=== PATIENT | female | born 2000 | race Caucasian/White ===

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

== ENCOUNTER 2021-01-20 10:04 | Inpatient (IN) | payer OTHER ==
[2021-01-20] MEDS ORDERED: LACTATED RINGERS 1,000 ML IV ONE (10:09)
[2021-01-20] MEDS ORDERED: CITRIC ACID-SODIUM CITRATE 15 ML CUP PO ONE (10:09)
[2021-01-20] MEDS ORDERED: LACTATED RINGERS 1,000 ML IV SCH (10:15)
[2021-01-20 10:55] LABS: Anisocytosis Slight; Basophils % (A) 0 %; Eosinophils % (A) 1 %; HCT 35.6 % (34.0-46.0); HGB 11.8 gm/dL (11.4-16.0); Lymphocytes # (A) 1.1 k/uL (1.0-4.8); Lymphocytes % (A) 21 %; MCH 26.2 pg (25.0-35.0); MCHC 33.3 g/dL (31.0-37.0); MCV 78.6 fL (80.0-100.0); Mean Platelet Volume 9.2; Microcytosis Slight; Monocytes # (A) 0.2 k/uL (0-1.0); Monocytes % (A) 4 %; Neutrophils # (A) 3.9 k/uL (1.3-7.7); Neutrophils % (A) 73 %; Platelet Count 174 k/uL (150-450); Poikilocytosis Slight; RBC 4.52 m/uL (3.80-5.40); RDW 16.1 % (11.5-15.5); WBC 5.4 k/uL (3.8-10.6)
--- NOTE | 2021-01-20 10:55 | P.HPOB ---
History of Present Illness H&P Date: 01/20/21 Chief Complaint: 39-2/7 weeks, previous section, requesting repeat The patient is a 20-year-old 2 para 1001 who presents to the hospital at 39-2/7 weeks as established by last menstrual period and confirmed by 10 week ultrasound for repeat low transverse section having previously undergone section. Her has been otherwise entirely uncomplicated and group B strep status is negative. Obstetrical history: 2 para 1001 with 1 term section as noted above. Current statistics are listed in history of present illness. EDC of 01/24/2021 was established by last menstrual period and confirmed by 10 week ultrasound. Laboratory workup demonstrates a blood type of AB+ with a negative antibody screen. Rubella status is immune. The remainder of the laboratory workup was within normal limits aside from a positive urine culture which was treated and cured. Early Glucola as well as second trimester Glucola were within normal limits. Group B strep status is negative. Gynecologic history: Unremarkable with no history of any infections to include STDs. Review of Systems Review of systems is confined to history of present illness. Past Medical History Additional Past Medical History / Comment(s): c section 07/2019 History of Any Multi-Drug Resistant Organisms: None Reported Past Surgical History: Section Additional Past Surgical History / Comment(s): 07/2019 Past Anesthesia/Blood Transfusion Reactions: No Reported Reaction Past Psychological History: No Psychological Hx Reported Smoking Status: Never smoker Past Alcohol Use History: None Reported Past Drug Use History: None Reported Medications and Allergies Home Medications Medication Instructions Recorded Confirmed Type No Known Home Medications 01/20/21 01/20/21 History Allergies Allergy/AdvReac Type Severity Reaction Status Date / Time No Known Allergies Allergy Verified 01/20/21 10:08 Exam Vital Signs Temp Pulse Resp BP Pulse Ox 01/20/21 10:08 97.2 F L 89 16 126/82 99 Intake and Output 01/19/21 01/20/21 01/20/21 22:59 06:59 14:59 Other: Weight 99.337 kg In general, this is a well-developed, moderately obese white female in no acute distress. Her heart has a regular rhythm and rate without murmur. Her lungs are clear to auscultation in all ferrer. Her abdomen is gravid, nondistended, has normal active bowel sounds, is soft, nontender, and without any palpable masses aside from uterine fundus. Her extremities are without any cyanosis, clubbing, or edema and are nontender to palpation bilaterally. Digital cervical examination is deferred. Assessment and Plan (1) Term Current Visit: Yes Status: Acute Code(s): Z34.90 - ENCNTR FOR SUPRVSN OF NORMAL , UNSP, UNSP TRIMESTER SNOMED Code(s): 21612505 (2) Previous section Current Visit: Yes Status: Acute Code(s): Z98.891 - HISTORY OF UTERINE SCAR FROM PREVIOUS SURGERY SNOMED Code(s): 180712528 Plan: The patient is admitted for repeat low transverse section. The risks and complications of the procedure been thoroughly discussed and she has understood and agreed to proceed.
[2021-01-20] MEDS ORDERED: OXYTOCIN 30 UNITS/500 ML NS BAG IV ONE (11:25)
[2021-01-20] MEDS ORDERED: KETOROLAC 15 MG/ML 1 ML VIAL ONE (11:25)
[2021-01-20] MEDS ORDERED: DEXAMETHASONE SOD PHOSPHATE 10 MG/ML 1 ML VIAL ONE (11:25)
[2021-01-20] MEDS ORDERED: HYDROmorphone (PF) 1 MG/ML ONE (11:25)
[2021-01-20] MEDS ORDERED: ONDANSETRON 4 MG/2 ML VIAL ONE (11:25)
[2021-01-20] MEDS ORDERED: MORPHINE SULFATE (PF) 0.3 MG/0.3 ML SYR ONE (11:25)
[2021-01-20] MEDS ORDERED: SIMETHICONE 80 MG CHEWABLE PO PRN (12:23)
[2021-01-20] MEDS ORDERED: METOCLOPRAMIDE 5 MG/ML 2 ML VIAL IVP PRN (12:23)
[2021-01-20] MEDS ORDERED: ONDANSETRON 4 MG/2 ML VIAL IVP PRN (12:23)
[2021-01-20] MEDS ORDERED: ZOLPIDEM 5 MG TAB PO PRN (12:23)
[2021-01-20] MEDS ORDERED: diphenhydrAMINE 50 MG/ML 1 ML VIAL IVP PRN ×2 (12:23)
[2021-01-20] MEDS ORDERED: diphenhydrAMINE 50 MG CAP PO PRN (12:23)
[2021-01-20] MEDS ORDERED: NALOXONE 0.4 MG/ML 1 ML VIAL IV PRN (12:23)
[2021-01-20] MEDS ORDERED: diphenhydrAMINE 25 MG CAP PO PRN (12:23)
[2021-01-20] MEDS ORDERED: HYDROmorphone 2 MG TAB PO PRN ×2 (12:23)
[2021-01-20] MEDS ORDERED: OXYTOCIN 30 UNITS/500 ML NS 30 UNIT in SALINE 1 500ML.BAG IV SCH (12:30)
--- NOTE | 2021-01-20 12:31 | P.OP ---
Date of Procedure: 01/20/21 Preoperative Diagnosis: #1. 39-3/7 weeks, previous section, requesting repeat Postoperative Diagnosis: Same Procedure(s) Performed: #1. Repeat low transverse section Anesthesia: spinal Surgeon: Pito Schwab Prism Inspector #1: Gabi Metzger Estimated Blood Loss (ml): 650 IV fluids (ml): 700 Urine output (ml): 100 Pathology: none sent Condition: stable Disposition: floor Operative Findings: The patient was taken to the operating room where she was delivered of a viable 7 lbs. 10 oz. baby boy with Apgars of 9 at 1 minute and 9 at 5 minutes. There was a nuchal cord 3 noted and reduced prior to delivery of the infant's body. The placenta was delivered manually, intact, and grossly normal with a grossly normal three-vessel cord. The uterus, tubes, and ovaries were normal to ins pection. There was a moderate amount of scarring present at the level of the fascia and muscles. Description of Procedure: The patient was prepped and draped in usual fashion after spinal anesthesia was administered by the anesthesiologist. A Pfannenstiel incision was made through pre-existing scar and extended into the abdominal cavity without difficulty other was some scarring at the level of the fascia to the rectus muscles. There was additionally some omentum scarred at the superior portion of the separation of the rectus muscles. The bladder peritoneum was elevated, incised, and reflected distally. A 2 cm incision was made in the transverse plane of the lower uterine segment to enter the uterus at which time clear fluid was noted. The incision was extended in both directions using the bandage scissors. The head was delivered up and through the incision where the nose and mouth were thoroughly suctioned. There was then noted to be 3 nuchal cords which were reduced prior to delivery of the . The remainder of the was delivered onto the field where the cord was doubly clamped, cut, and the passed for resuscitative measures with weight and Apgars as noted above. A segment of cord was doubly clamped, cut, and set aside should cord gases become necessary. The placenta was delivered manually and intact as noted above. The uterus was exteriorized and the interior cavity of the uterus swept of any remaining placental or membranous fragments. The margins of the incision were grasped with Loredo clamps and the incision closed in 2 layers. The first layer was a running locking stitch of 0 chromic catgut followed by a running imbricating layer of 0 chromic catgut, each from margin to margin. Any small points of bleeding were made hemostatic with the Bovie. The posterior cul-de-sac was suctioned using a guard and the uterine and ovarian findings were normal as noted above. The uterus was replaced within the abdominal cavity and the gutters swept of any remaining blood, fluid, or clot. Examination of the uterine incision demonstrated some just generalized oozing which was not amenable to treatment with the Bovie. As a result, Surgicel powder was applied to the incision. Hemostasis at that time appeared to be excellent. The parietal peritoneum was loosely reapproximated in the layer of muscles examined and made hemostatic with the Bovie. The fascia was closed with 2 running stitches of 0 Vicryl proceeding from the lateral margins to the midpoint. The subcutaneous tissues were irrigated, made hemostatic with the Bovie, and then reapproximated with a running stitch of 30 plain catgut. The skin was reapproximated with a running subcuticular stitch of 4-0 Vicryl followed by half-inch Steri-Strips placed with Mastisol. Estimated blood loss was approximately 650 mL. There were no complications. All sponge, instrument, and needle counts were correct. The patient tolerated the procedure well and proceeded to the recovery room in stable condition. Both mother and infant are resting comfortably in recovery.
[2021-01-20] MEDS: KETOROLAC 15 MG/ML 1 ML VIAL IVP PRN (17:22)
[2021-01-20] MEDS: LACTATED RINGERS 1,000 ML IV SCH ×2 (17:25→23:44)
[2021-01-20] MEDS: ACETAMINOPHEN TAB 500 MG TAB PO SCH ×2 (19:10→21:46)
[2021-01-20] MEDS: IBUPROFEN 600 MG TAB PO SCH (21:46)
[2021-01-20] MEDS: SENNOSIDES-DOCUSATE SODIUM 1 EACH TAB PO SCH (23:44)
[2021-01-21] MEDS: IBUPROFEN 600 MG TAB PO SCH ×5 (00:26→23:31)
[2021-01-21] MEDS: LACTATED RINGERS 1,000 ML IV SCH ×2 (01:57→19:16)
[2021-01-21] MEDS: KETOROLAC 15 MG/ML 1 ML VIAL IVP PRN (01:58)
[2021-01-21] MEDS: ACETAMINOPHEN TAB 500 MG TAB PO SCH ×4 (04:52→19:46)
--- NOTE | 2021-01-21 07:09 | P.PN ---
Progress Note - Text Progress Note Date: 01/21/21 Patient seen and examined at bedside POD 1 s/p . Patient received spinal with duramorph for anesthetic. Procedure was uneventful. Patient reports pain well controlled with duramorph and oral medication. Patient denies LEYVA, F/C, N/V. Patient is able to ambulate and has used the bathroom. Site is clean and without erythema. Continue to follow while at hospital.
[2021-01-21 07:16] LABS: Anisocytosis Slight; HCT 22.6 % (34.0-46.0); MCH 25.5 pg (25.0-35.0); MCV 79.7 fL (80.0-100.0); Mean Platelet Volume 10.3; Platelet Count 171 k/uL (150-450); Poikilocytosis Slight; RBC 2.83 m/uL (3.80-5.40); RDW 16.3 % (11.5-15.5); WBC 9.6 k/uL (3.8-10.6)
[2021-01-21 07:19] LABS: HGB 7.2 gm/dL (11.4-16.0)
[2021-01-21 08:13] LABS: Monocytes # (M) 0.38 k/uL (0-1.0); Neutrophils # (M) 6.72 k/uL (1.3-7.7); Neutrophils % (M) 70 %; Nucleated Red Blood Cells 0 /100 WBC (0-0); Total Cells Counted 100
[2021-01-21] MEDS: SENNOSIDES-DOCUSATE SODIUM 1 EACH TAB PO SCH ×2 (08:30→19:47)
--- NOTE | 2021-01-21 08:36 | P.PNOBGPC ---
Subjective - Subjective Interval history: No signs or symptoms of hypovolemia or anemia/orthostasis. Patient reports: Reports appetite normal, Reports voiding normally, Reports pain well controlled, Reports ambulating normally : doing well Objective - Vital Signs Latest vital signs: Vital Signs Temp Pulse Resp BP Pulse Ox 01/21/21 04:00 98.4 F 68 18 110/76 01/21/21 00:00 98.3 F 112 H 18 110/72 01/20/21 20:00 98.4 F 118 H 18 109/76 01/20/21 16:00 94.8 F L 62 18 147/75 100 01/20/21 14:31 97.9 F 85 15 128/66 100 01/20/21 14:01 97.9 F 57 L 16 125/83 100 01/20/21 13:31 97.6 F 61 16 126/77 99 01/20/21 13:16 97.9 F 71 18 136/84 99 01/20/21 13:01 97.5 F L 71 18 134/78 99 01/20/21 12:46 97.5 F L 59 L 16 123/78 99 01/20/21 12:31 97.1 F L 91 17 117/76 93 L 01/20/21 10:08 97.2 F L 89 16 126/82 99 Intake and Output 01/20/21 01/21/21 01/21/21 22:59 06:59 14:59 Output Total 850 Balance -850 Output: Urine 850 Other: Voiding Method Indwelling Catheter Indwelling Catheter # Voids 2 - Exam Extremities: Present: normal Abdomen: Present: normal appearance, soft. Absent: distention, tenderness Incision: Present: normal, dry, intact Uterus: Present: normal, firm (The uterine fundus is dystonic and minimally tender around the umbilicus.) - Labs Labs: Abnormal Lab Results - Last 24 Hours (Table) 01/20/21 01/21/21 Range/Units 13:30 07:07 RBC 2.83 L (3.80-5.40) m/uL Hgb 7.2 L D (11.4-16.0) gm/dL Hct 22.6 L (34.0-46.0) % MCV 78.6 L 79.7 L (80.0-100.0) fL RDW 16.1 H 16.3 H (11.5-15.5) % Assessment and Plan (1) Term Current Visit: Yes Status: Acute Code(s): Z34.90 - ENCNTR FOR SUPRVSN OF NORMAL , UNSP, UNSP TRIMESTER SNOMED Code(s): 69150916 (2) Previous section Current Visit: Yes Status: Acute Code(s): Z98.891 - HISTORY OF UTERINE SCAR FROM PREVIOUS SURGERY SNOMED Code(s): 675151875 (3) S/P section Current Visit: Yes Status: Acute Code(s): Z98.891 - HISTORY OF UTERINE SCAR FROM PREVIOUS SURGERY SNOMED Code(s): 098581304 Plan: Continue routine and postoperative care. Her hemoglobin this morning is somewhat surprising, but the patient remains asymptomatic at this time. I will repeat it tomorrow morning for stability and continue to follow vital signs closely. I have strongly encouraged the patient is ambulatory the hallways routinely and, assuming no complications, would expect discharge home tomorrow.
[2021-01-22] MEDS: ACETAMINOPHEN TAB 500 MG TAB PO SCH ×4 (03:09→19:31)
[2021-01-22] MEDS: IBUPROFEN 600 MG TAB PO SCH ×2 (06:11→14:00)
[2021-01-22] MEDS: SENNOSIDES-DOCUSATE SODIUM 1 EACH TAB PO SCH ×2 (08:18→19:47)
--- NOTE | 2021-01-22 08:57 | P.DS ---
Providers Date of admission: 01/20/21 10:04 Expected date of discharge: 01/22/21 Attending physician: Pito Schwab Primary care physician: Stated None - Discharge Diagnosis(es) (1) Term Current Visit: Yes Status: Acute (2) Previous section Current Visit: Yes Status: Acute (3) S/P section Current Visit: Yes Status: Acute Hospital Course: The patient is a 20-year-old 2 para 1001 admitted at 39-2/7 weeks by good dating parameters for repeat low transverse section. Her has been uncomplicated and group B strep status is negative. On labor and delivery, she was taken the operating room where she was delivered of a viable 7 lbs. 10 oz. baby boy with Apgars of 9 at 1 minute and 9 at 5 minutes. Her course was unremarkable with vital signs remaining stable and her temperature was afebrile throughout. She did have a fairly significant drop in her hemoglobin to a param of 7.2. She was asymptomatic despite. She was deemed stable for discharge on and postoperative day #2 was discharged home to follow-up in the office in 2 weeks for an incision check and 6 weeks routinely. Discharge instructions included calling for any significantly increased bleeding or foul-smelling lochia, significantly increased fever or abdominal pain, perineal complaints, breast complaints, incisional complaints, or anything else that concerned her. She is additionally instructed to have nothing in the vagina for at least 6 weeks time to include intercourse and to abstain from any heavy lifting over the same period of time. She is less instructed to do no driving until off of all pain medications or 2 weeks' time, whichever came first. She understood all of her instructions and agrees to follow up as noted above. Discharge medications included [id number] pain medications as well as recommendation to take iron sulfate 3 and 25 mg 1-2 times daily for the next 1-2 months. She was additionally provided a prescription for Tylenol 3, 1-2 by mouth every 6 hours when necessary pain, #20 dispensed with no refills. Maternal blood type is AB+ and rubella status is immune. Discharge hemoglobin and hematocrit were 7.2 and 22.6 though hemoglobin is pending this morning. Procedures: #1. Repeat low transverse section Patient Condition at Discharge: Stable Plan - Discharge Summary New Discharge Prescriptions: No Action No Known Home Medications Discharge Medication List No Known Home Medications 01/20/21 [History] Follow up Appointment(s)/Referral(s): Pito Schwab MD [STAFF PHYSICIAN] - 2 Weeks Discharge Disposition: HOME SELF-CARE
[2021-01-22 09:36] LABS: Anisocytosis Slight; MCH 27.1 pg (25.0-35.0); MCHC 34.4 g/dL (31.0-37.0); MCV 78.7 fL (80.0-100.0); Mean Platelet Volume 9.5; Microcytosis Slight; Platelet Count 161 k/uL (150-450); Poikilocytosis Slight; RBC 2.19 m/uL (3.80-5.40); RDW 16.7 % (11.5-15.5); WBC 10.7 k/uL (3.8-10.6)
[2021-01-22 09:47] LABS: HGB 5.9 gm/dL (11.4-16.0)
[2021-01-22 09:48] LABS: HCT 17.3 % (34.0-46.0)
[2021-01-22 20:23] LABS: Anisocytosis Slight; Basophils % (A) 0 %; Eosinophils % (A) 0 %; HGB 7.1 gm/dL (11.4-16.0); Lymphocytes # (A) 1.8 k/uL (1.0-4.8); Lymphocytes % (A) 14 %; MCH 26.7 pg (25.0-35.0); MCHC 33.8 g/dL (31.0-37.0); MCV 78.9 fL (80.0-100.0); Mean Platelet Volume 9.5; Monocytes # (A) 0.4 k/uL (0-1.0); Monocytes % (A) 3 %; Neutrophils # (A) 9.8 k/uL (1.3-7.7); Neutrophils % (A) 80 %; Platelet Count 195 k/uL (150-450); Poikilocytosis Slight; RBC 2.66 m/uL (3.80-5.40); RDW 16.3 % (11.5-15.5); WBC 12.3 k/uL (3.8-10.6)
[2021-01-23] MEDS: ACETAMINOPHEN TAB 500 MG TAB PO SCH ×2 (03:11→09:57)
[2021-01-23] MEDS: IBUPROFEN 600 MG TAB PO SCH ×3 (04:16→06:07)
[2021-01-23 09:43] LABS: Anisocytosis Slight; Basophils % (A) 0 %; Eosinophils % (A) 0 %; HCT 21.1 % (34.0-46.0); Lymphocytes # (A) 1.5 k/uL (1.0-4.8); Lymphocytes % (A) 14 %; MCHC 32.6 g/dL (31.0-37.0); MCV 79.6 fL (80.0-100.0); Mean Platelet Volume 9.2; Monocytes # (A) 0.3 k/uL (0-1.0); Monocytes % (A) 3 %; Neutrophils # (A) 8.9 k/uL (1.3-7.7); Neutrophils % (A) 81 %; Platelet Count 206 k/uL (150-450); Poikilocytosis Slight; RBC 2.65 m/uL (3.80-5.40); RDW 16.6 % (11.5-15.5)
[2021-01-23 09:49] LABS: HGB 6.9 gm/dL (11.4-16.0)
--- NOTE | 2021-01-23 11:30 | P.PNOBGPC ---
Subjective - Subjective Interval history: The patient denies any signs or symptoms of orthostasis and feels significantly better since receiving 1 unit of packed red blood cells yesterday. She is requesting discharge home. Patient reports: Reports appetite normal, Reports voiding normally, Reports pain well controlled, Reports ambulating normally : doing well Objective - Vital Signs Latest vital signs: Vital Signs Temp Pulse Pulse Resp BP BP Pulse Ox 01/23/21 00:00 98.0 F 82 17 112/74 100 01/22/21 16:00 98.2 F 99 16 127/85 99 01/22/21 13:15 98.5 F 98 16 124/80 01/22/21 12:15 98.8 F 100 16 121/84 100 01/22/21 11:45 98.5 F 97 16 119/81 100 Intake and Output 01/22/21 01/23/21 01/23/21 22:59 06:59 14:59 Intake Total 510 Balance 510 Intake: IV 200 Blood Product 310 Other: Voiding Method Toilet # Voids 3 3 - Exam Extremities: Present: normal Abdomen: Present: normal appearance, soft. Absent: distention, tenderness Incision: Present: normal, dry, intact Uterus: Present: normal, firm (The uterine fundus is Paco a candidate for fairly tender below the umbilicus.) - Labs Labs: Abnormal Lab Results - Last 24 Hours (Table) 01/20/21 01/22/21 01/23/21 Range/Units 10:35 19:36 08:42 WBC 12.3 H 11.0 H (3.8-10.6) k/uL RBC 2.66 L 2.65 L (3.80-5.40) m/uL Hgb 7.1 L 6.9 L* (11.4-16.0) gm/dL Hct 21.0 L 21.1 L (34.0-46.0) % MCV 78.9 L 79.6 L (80.0-100.0) fL RDW 16.3 H 16.6 H (11.5-15.5) % Neutrophils # 9.8 H 8.9 H (1.3-7.7) k/uL Crossmatch See Detail Assessment and Plan (1) Term Current Visit: Yes Status: Acute Code(s): Z34.90 - ENCNTR FOR SUPRVSN OF NORMAL , UNSP, UNSP TRIMESTER SNOMED Code(s): 91867460 (2) Previous section Current Visit: Yes Status: Acute Code(s): Z98.891 - HISTORY OF UTERINE SCAR FROM PREVIOUS SURGERY SNOMED Code(s): 545524389 (3) S/P section Current Visit: Yes Status: Acute Code(s): Z98.891 - HISTORY OF UTERINE SCAR FROM PREVIOUS SURGERY SNOMED Code(s): 309593812 Plan: The patient had a drop in her hemoglobin from postop day 1 at which time it was 7.2 to 5.9 on the morning of postoperative day #2. As a result, she had discharge canceled and received 1 unit of packed red blood cells. She has been entirely stable since that time and feels significantly better from a clinical perspective. Hemoglobin has risen appropriately and remained stable based on 1 unit transfused. As a result, I will discharge her home today and have placed an addendum on the discharge summary. She understands her instructions and will call for any signs or symptoms of hypovolemia or ongoing bleeding.
[2021-01-23 13:07] VITALS: BP 139/90; PULSE 84; RESP 16; TEMP 98.2
== END 2021-01-23 12:50 | disposition home or self-care (01) | DRG 788 ==
LOC: 4FBP 10:04
PROVIDERS: ADMIT Obstetrics & Gynecology; ATTEND Obstetrics & Gynecology
PROC: 10D00Z1 Extraction of Products of Conception, Low, Open Approach (ICD-10-PCS; principal; 2021-01-20 12:00)
DX: O34.211 Maternal care for low transverse scar from previous cesarean delivery (principal); O69.81X0 Labor and delivery complicated by cord around neck, without compression, not applicable or unspecified; Z37.0 Single live birth; Z3A.39 39 weeks gestation of pregnancy
CPT/HCPCS: 85025; 85027; 86850; 86900; 86901; 86920